=== PATIENT | female | born 1950 | race African-American/Black ===

== ENCOUNTER 2019-03-14 15:10 | Outpatient (CLI) | payer MEDICARE, MEDICAID ==
--- NOTE | 2019-03-14 15:28 | PRG ---
DATE OF SERVICE: 03/14/2019 HISTORY: Ms. Mari Patino is a very pleasant 68-year-old, who presents to the Wound Center for evaluation of an ulceration of the left anterior lower leg. Previously, the patient stated that she may have been bitten by an insect in October of this year. She stated that for the ulceration of her left lower leg, she had been cleansing the wound with Ivory soap and applying Neosporin followed by gauze and Coban prior to being seen in the Wound Center. The patient stated that she had received antibiotics for the ulceration of her left anterior lower leg. The patient was referred to the Wound Center by Dr. Esquivel on 02/28/2019. After being seen in the Wound Center, the ulceration was treated with the application of Xeroform, followed by an ABD and 3M Coban 2 Layer Compression System. PHYSICAL EXAMINATION: VITAL SIGNS: Temperature 98.2, pulse 77, respirations 20, blood pressure 131/65. EXTREMITIES: An ulceration of the left anterior lower leg is present which measures approximately 3.8 x 2.0 cm. Granulation tissue is visible within the wound margins. No purulent drainage is associated with the wound. No cellulitis of the left lower leg is appreciated. No maceration of the skin of the periwound is noted. A dorsalis pedis pulse is easily palpable on the left. No significant edema of the left foot or lower leg is present on exam today. ASSESSMENT AND PLAN: 1. Chronic venous hypertension with ulcer and inflammation. Dressing changes of Xeroform, followed by an ABD and 3M Coban 2 Layer Compression System will be continued on a weekly basis after cleansing and irrigation here in the Wound Center. I will see Ms. Patino again in 1 week. 2. Hypertension. 3. Gastroesophageal reflux disease. 4. Hypothyroidism. 5. Diabetes mellitus. Accu-Cheks will be obtained at the time of the patient's clinic visits. The patient has been reminded that for optimal wound healing, her blood glucoses should remain below 150. 6. Arthritis. Job ID: [id number]
[2019-03-14] MEDS ORDERED: Lidocaine 2% PF 100 mg/5 ml Syringe ONE (18:00)
[2019-03-14] MEDS ORDERED: Sodium Chloride 0.9% 15 ML NEB ONE (18:00)
== END 2019-03-14 15:11 | disposition home or self-care (01) ==
LOC: WCC 15:10
PROVIDERS: ATTEND Family Medicine
DX: I87.332 Chronic venous hypertension (idiopathic) with ulcer and inflammation of left lower extremity (principal); E11.622 Type 2 diabetes mellitus with other skin ulcer; L97.929 Non-pressure chronic ulcer of unspecified part of left lower leg with unspecified severity; I10 Essential (primary) hypertension; K21.9 Gastro-esophageal reflux disease without esophagitis; E03.9 Hypothyroidism, unspecified; M19.90 Unspecified osteoarthritis, unspecified site
CPT/HCPCS: A4218; J2001

== ENCOUNTER 2019-03-21 14:17 | Outpatient (CLI) | payer MEDICARE, MEDICAID ==
[2019-03-21] MEDS ORDERED: Sodium Chloride 0.9% 15 ML NEB ONE (18:00)
[2019-03-21] MEDS ORDERED: Lidocaine 2% PF 5 ML VIAL ONE (18:00)
--- NOTE | 2019-03-21 20:14 | PRG ---
DATE OF SERVICE: 03/21/2019 SUBJECTIVE: Ms. Mari Patino is a very pleasant 68-year-old, who presents to the wound center for evaluation of an ulceration of the left anterior lower leg. The patient previously stated that she may have been bitten by an insect in October of this year. She stated that for the ulceration of her left lower leg, she had been cleansing the wound with Ivory soap and applying the Neosporin followed by gauze and Coban prior to being seen in the wound center. The patient stated that she had received antibiotics for the ulceration of her left anterior lower leg. The patient was referred to the wound center by Dr. Esquivel on 02/28/2019. After being seen in the wound center, the ulceration was treated with the application of Xeroform, followed by an ABD and 3M Coban 2 Layer Compression System. OBJECTIVE: VITAL SIGNS: Temperature 97.8, pulse 83, respirations 18, blood pressure 163/89. EXTREMITIES: An ulceration of the left anterior lower leg is present, which measures approximately 3.9 x 1.8 cm. Granulation tissue is visible within the wound margins. No purulent drainage is associated with the wound. No cellulitis of the left lower leg is appreciated. No maceration of the skin of the periwound is noted. A dorsalis pedis pulses palpable on the left. No significant edema of the left foot or lower leg is present on exam today. ASSESSMENT AND PLAN: 1. Chronic venous hypertension with ulcer and inflammation. Xeroform gauze followed by an ABD, [place], and 3M Coban 2 Layer Compression System will be applied to the ulceration today. I will see Ms. Patino again in 1 week. 2. Hypertension. 3. Gastroesophageal reflux disease. 4. Hypothyroidism. 5. Diabetes mellitus. Accu-Cheks will be obtained at the time of the patient's clinic visit. The patient has been reminded that for optimal wound healing, her blood glucoses should remain below 150. 6. Arthritis. Job ID: [id number]
== END 2019-03-21 14:18 | disposition home or self-care (01) ==
LOC: WCC 14:17
PROVIDERS: ATTEND Family Medicine
DX: I87.332 Chronic venous hypertension (idiopathic) with ulcer and inflammation of left lower extremity (principal); E11.622 Type 2 diabetes mellitus with other skin ulcer; L97.929 Non-pressure chronic ulcer of unspecified part of left lower leg with unspecified severity; K21.9 Gastro-esophageal reflux disease without esophagitis; E03.9 Hypothyroidism, unspecified; M19.90 Unspecified osteoarthritis, unspecified site
CPT/HCPCS: 29581; A4218; J2001

== ENCOUNTER 2019-03-28 14:12 | Outpatient (CLI) | payer MEDICARE, MEDICAID ==
[~2019-03-28 14:12] MED LIST: Sodium Chloride 0.9% 15 ML NEB ONE
--- NOTE | 2019-03-28 15:53 | PRG ---
DATE OF SERVICE: 03/28/2019 HISTORY: Ms. Mari Patino is a very pleasant 68-year-old, who presents to the Wound Center for evaluation of an ulceration of the left anterior lower leg. The patient previously stated that she may have been bitten by an insect in October of this year. She stated that for the ulceration of her left lower leg, she had been cleansing the wound with Ivory soap and applying Neosporin followed by gauze and Coban prior to being seen in the Wound Center. The patient stated that she had received antibiotics for the ulceration of her left anterior lower leg. The patient was referred to the Wound Center by Dr. Esquivel on 02/28/2019. After being seen in the Wound Center, the ulceration was treated with the application of Xeroform, followed by an ABD and the 3M Coban 2 Layer Compression System. PHYSICAL EXAMINATION: VITAL SIGNS: Temperature 98.3, pulse 77, respirations 19, and blood pressure 137/67. EXTREMITIES: An ulceration of the left anterior lower leg is present, which measures approximately 2.6 x 1.8 cm. The dimensions of the wound at the time of the patient's last visit were approximately 3.8 x 2.0 cm. Granulation tissue is visible within the wound margins. No purulent drainage is associated with the wound. No cellulitis of the left lower leg is appreciated. No maceration of the skin of the periwound is noted. A dorsalis pedis pulse is palpable on the left. No significant edema of the left foot or lower leg is present on exam today. ASSESSMENT AND PLAN: 1. Chronic venous hypertension with ulcer and inflammation. Dressing changes of Xeroform followed by the 3M Coban 2 Layer Compression System are to be performed on a weekly basis after cleansing and irrigation here in the Wound Center. I will see Ms. Patino again in 1 week. The patient has been given a prescription for Synalar ointment 0.025% to be applied to the periwound of the ulceration at the time of dressing changes. The patient complains of itching of the periwound. 2. Hypertension. 3. Gastroesophageal reflux disease. 4. Hypothyroidism. 5. Diabetes mellitus. Accu-Cheks will be obtained at the time of the patient's clinic visits. The patient has been reminded that for optimal wound healing, her blood glucoses should remain below 150. 6. Arthritis. Job ID: [id number]
== END 2019-03-28 14:13 | disposition home or self-care (01) ==
LOC: WCC 14:12
PROVIDERS: ATTEND Family Medicine
DX: I87.332 Chronic venous hypertension (idiopathic) with ulcer and inflammation of left lower extremity (principal); K21.9 Gastro-esophageal reflux disease without esophagitis; E03.9 Hypothyroidism, unspecified; I10 Essential (primary) hypertension; E11.9 Type 2 diabetes mellitus without complications
CPT/HCPCS: A4218

== ENCOUNTER 2019-04-04 15:37 | Outpatient (CLI) | payer MEDICARE, MEDICAID ==
--- NOTE | 2019-04-04 17:10 | PRG ---
DATE OF SERVICE: 04/04/2019 HISTORY: Ms. Mari Patino is a very pleasant 68-year-old, who presents to the Wound Center for evaluation of an ulceration of the left anterior lower leg. Previously, the patient stated that she may have been bitten by an insect in October of this year. She stated that for the ulceration of her left lower leg, she had been cleansing the wound with Ivory soap and applying Neosporin followed by gauze and Coban prior to being seen in the Wound Center. The patient stated that she had received antibiotics for the ulceration of her left anterior lower leg. The patient was referred to the Wound Center by Dr. Esquivel on 02/28/2019. After being seen in the Wound Center, the ulceration was treated with the application of Xeroform, followed by an ABD and 3M Coban 2 Layer Compression System. PHYSICAL EXAMINATION: VITAL SIGNS: Temperature 98.1, pulse 101, respirations 22, and blood pressure 156/86. EXTREMITIES: An ulceration of the left anterior lower leg is present, which measures approximately 3.0 x 1.7 cm. Granulation tissue is visible within the wound margins. An island of skin is also visible within the wound margins. No purulent drainage is associated with the wound. No erythema of the skin surrounding the wound is present. No maceration of the skin of the periwound is noted. No significant edema of the left foot or lower leg is present on exam today. ASSESSMENT AND PLAN: 1. Chronic venous hypertension with ulcer and inflammation. Dressing changes of Xeroform followed by the 3M Coban 2 Layer Compression System are to be performed on a weekly basis after cleansing and irrigation here in the Wound Center. I will see Ms. Patino again in 1 week. Synalar ointment 0.025% will be continued to the periwound of the ulceration at the time of dressing changes. 2. Hypertension. 3. Gastroesophageal reflux disease. 4. Hypothyroidism. 5. Diabetes mellitus. Accu-Cheks will be obtained at the time of the patient's clinic visits. The patient has been reminded that for optimal wound healing, her blood glucoses should remain below 150. 6. Arthritis. Job ID: [id number]
== END 2019-04-04 15:38 | disposition home or self-care (01) ==
LOC: WCC 15:37
PROVIDERS: ATTEND Family Medicine
DX: I87.332 Chronic venous hypertension (idiopathic) with ulcer and inflammation of left lower extremity (principal); K21.9 Gastro-esophageal reflux disease without esophagitis; E03.9 Hypothyroidism, unspecified; E11.9 Type 2 diabetes mellitus without complications; M19.90 Unspecified osteoarthritis, unspecified site
CPT/HCPCS: 29581; A4218

== ENCOUNTER 2019-04-11 16:04 | Outpatient (CLI) | payer MEDICARE, MEDICAID ==
--- NOTE | 2019-04-11 17:18 | PRG ---
DATE OF SERVICE: 04/11/2019 HISTORY: Ms. Mari Patino is a very pleasant 68-year-old, who presents to the wound center for evaluation of an ulceration of the left anterior lower leg. The patient previously stated that she may have been bitten by an insect in October of this year. She stated that for the ulceration of her left lower leg, she had been cleansing the wound with Ivory soap and applying Neosporin followed by gauze and Coban prior to being seen in the wound center. The patient stated that she had received antibiotics for the ulceration of her left anterior lower leg. The patient was referred to the wound center by Dr. Esquivel on 02/28/2019. After being seen in the wound center, the ulceration was treated with the application of Xeroform, followed by an ABD and 3M Coban 2 Layer Compression System. PHYSICAL EXAMINATION: VITAL SIGNS: Temperature 99.6, pulse 81, respirations 20, blood pressure 119/66. EXTREMITIES: An ulceration of the left anterior lower leg is present which measures approximately 3.0 x 1.7 cm. The dimensions of the wound at the time of the patient's visit on 04/04/2019, were also approximately 3.0 x 1.7 cm. Granulation tissue is visible within the wound margins. An island of skin is again visible within the wound margins. No purulent drainage is associated with the wound. No erythema of the skin surrounding the wound is present. No maceration of the skin of the periwound is noted. No significant edema of the left foot or lower leg is present on exam today. ASSESSMENT AND PLAN: 1. Chronic venous hypertension with ulcer and inflammation. Dressing changes of Xeroform will be discontinued. Dressing changes of Medihoney followed by the 3M Coban 2 Layer Compression System will be initiated today. These dressing changes are to be performed on a weekly basis after cleansing and irrigation here in the wound center. The patient will return to the wound center for dressing change in 1 week. I will see Ms. Patino again in 2 weeks. Synalar ointment 0.025% will be continued to the periwound of the ulceration at the time of dressing changes. 2. Hypertension. 3. Gastroesophageal reflux disease. 4. Hypothyroidism. 5. Diabetes mellitus. Accu-Cheks will be obtained at the time of the patient's clinic visits. The patient has been reminded that for optimal wound healing, her blood glucoses should remain below 150. 6. Arthritis. Job ID: [id number]
== END 2019-04-11 16:05 | disposition home or self-care (01) ==
LOC: WCC 16:04
PROVIDERS: ATTEND Family Medicine
DX: I87.332 Chronic venous hypertension (idiopathic) with ulcer and inflammation of left lower extremity (principal); L97.829 Non-pressure chronic ulcer of other part of left lower leg with unspecified severity; E11.622 Type 2 diabetes mellitus with other skin ulcer; I10 Essential (primary) hypertension; E03.9 Hypothyroidism, unspecified; M19.90 Unspecified osteoarthritis, unspecified site
CPT/HCPCS: 29581; A4218

== ENCOUNTER 2019-04-17 13:15 | Outpatient (CLI) | payer MEDICARE, MEDICAID ==
[2019-04-17] MEDS ORDERED: Sodium Chloride 0.9% 15 ML NEB ONE (14:28)
== END 2019-04-17 13:16 | disposition home or self-care (01) ==
LOC: WCC 13:15
PROVIDERS: ATTEND Family Medicine
DX: I87.332 Chronic venous hypertension (idiopathic) with ulcer and inflammation of left lower extremity (principal); E11.622 Type 2 diabetes mellitus with other skin ulcer; L97.929 Non-pressure chronic ulcer of unspecified part of left lower leg with unspecified severity; E03.9 Hypothyroidism, unspecified; K21.9 Gastro-esophageal reflux disease without esophagitis; M19.90 Unspecified osteoarthritis, unspecified site
CPT/HCPCS: 29581; A4218

== ENCOUNTER 2019-04-25 15:00 | Outpatient (CLI) | payer MEDICARE, MEDICAID ==
[2019-04-25] MEDS ORDERED: Sodium Chloride 0.9% 15 ML NEB ONE (17:11)
[2019-04-25] MEDS ORDERED: Lidocaine 2% PF 100 mg/5 ml Syringe ONE (17:11)
--- NOTE | 2019-04-25 17:15 | PRG ---
DATE OF SERVICE: 04/25/2019 SUBJECTIVE: Ms. Mari Patino is a very pleasant 69-year-old, who presents to the Wound Center for evaluation of an ulceration of the left anterior lower leg. Previously, the patient stated that she may have been bitten by an insect in October of this year. She stated that for the ulceration of her left lower leg, she had been cleansing the wound with Ivory Soap and applying Neosporin followed by gauze and Coban prior to being seen in the Wound Center. The patient stated that she had received antibiotics for the ulceration of her left anterior lower leg. The patient was referred to the Wound Center by Dr. Esquivel on 02/28/2019. After being seen in the Wound Center, the ulceration was treated with the application of Xeroform, followed by an ABD, and 3M Coban 2 Layer Compression System. OBJECTIVE: VITAL SIGNS: Temperature 98.8, pulse 87, respirations 19, blood pressure 149/89. EXTREMITIES: An ulceration of the left anterior lower leg is present, which measures approximately 2.7 x 1.8 cm. The dimensions of the wound at the time of the patient's visit on 04/11/2019 were approximately 3.0 x 1.7 cm. Granulation tissue is visible within the wound margins and island of skin is again visible within the wound margins. No purulent drainage is associated with the wound. No erythema of the skin surrounding the wound is present. No maceration of the skin of the periwound is noted. No significant edema of the left foot or lower leg is present on exam today. ASSESSMENT AND PLAN: 1. Chronic venous hypertension with ulcer and inflammation. Dressing changes of Promogran, Hydrofera Blue, ABD, and the 3M Coban 2 Layer Compression System will be initiated today. These dressing changes are to be performed on a weekly basis after cleansing and irrigation here in the Wound Center. The patient is to return to the Wound Center in 1 week. Synalar ointment 0.025% will be continued to the periwound of the ulceration at the time of dressing changes. 2. Hypertension. 3. Gastroesophageal reflux disease. 4. Hypothyroidism. 5. Diabetes mellitus. Accu-Cheks will be obtained at the time of the patient's clinic visits. The patient has been reminded that for optimal wound healing, her blood glucoses should remain below 150. 6. Arthritis. Job ID: [id number]
== END 2019-04-25 15:01 | disposition home or self-care (01) ==
LOC: WCC 15:00
PROVIDERS: ATTEND Family Medicine
DX: I87.332 Chronic venous hypertension (idiopathic) with ulcer and inflammation of left lower extremity (principal); E11.622 Type 2 diabetes mellitus with other skin ulcer; L97.929 Non-pressure chronic ulcer of unspecified part of left lower leg with unspecified severity; M19.90 Unspecified osteoarthritis, unspecified site; E03.9 Hypothyroidism, unspecified; K21.9 Gastro-esophageal reflux disease without esophagitis; I10 Essential (primary) hypertension
CPT/HCPCS: A4218; J2001

== ENCOUNTER 2019-05-02 15:51 | Outpatient (CLI) | payer MEDICARE, MEDICAID ==
[~2019-05-02 15:51] MED LIST changes: +Lidocaine 2% PF 100 mg/5 ml Syringe ONE
--- NOTE | 2019-05-02 17:14 | PRG ---
DATE OF SERVICE: 05/02/2019 HISTORY: Ms. Mari Patino is a very pleasant 69-year-old, who presents to the Wound Center for evaluation of an ulceration of the left anterior lower leg. The patient previously stated that she may have been bitten by an insect in October of this year. She stated that for the ulceration of her left lower leg, she had been cleansing the wound with Ivory soap and applying Neosporin followed by gauze and Coban prior to being seen in the Wound Center. The patient stated that she had received antibiotics for the ulceration of her left anterior lower leg. The patient was referred to the Wound Center by Dr. Esquivel on 02/28/2019. After being seen in the Wound Center, the ulceration was treated with the application of Xeroform, followed by an AND, and 3M Coban 2 Layer Compression System. At the time of the patient's last visit, Promogran, Hydrofera Blue, ABD, and the 3M Coban 2 Layer Compression System were applied to the left anterior lower leg ulceration. PHYSICAL EXAMINATION: VITAL SIGNS: Temperature 98.3, pulse 87, respirations 18, and blood pressure 136/64. EXTREMITIES: An ulceration of the left anterior lower leg is present, which measures approximately 2.9 x 1.4 cm. The dimensions of the wound at the time of the patient's visit on 04/25/2019 were approximately 2.7 x 1.8 cm. Granulation tissue is visible within the wound margins. An island of skin is again visible within the wound margins. No purulent drainage is associated with the wound. No erythema of the skin surrounding the wound is present. No maceration of the skin of the periwound is noted. No significant edema of the left foot or lower leg is present on exam today. ASSESSMENT AND PLAN: 1. Chronic venous hypertension with ulcer and inflammation. Dressing changes of Promogran, Hydrofera Blue, ABD, and the 3M Coban 2 Layer Compression System will be continued on a weekly basis after cleansing and irrigation. The patient is to return to the Wound Center in 1 week. Synalar ointment 0.025% will be continued to the periwound of the ulceration at the time of dressing changes. 2. Hypertension. 3. Gastroesophageal reflux disease. 4. Hypothyroidism. 5. Diabetes mellitus. Accu-Cheks will be obtained at the time of the patient's clinic visits. The patient has been reminded that for optimal wound healing, her blood glucoses should remain below 150. 6. Arthritis. Job ID: [id number]
== END 2019-05-02 15:52 | disposition home or self-care (01) ==
LOC: WCC 15:51
PROVIDERS: ATTEND Family Medicine
DX: I87.332 Chronic venous hypertension (idiopathic) with ulcer and inflammation of left lower extremity (principal); E11.622 Type 2 diabetes mellitus with other skin ulcer; L97.929 Non-pressure chronic ulcer of unspecified part of left lower leg with unspecified severity; K21.9 Gastro-esophageal reflux disease without esophagitis; E03.9 Hypothyroidism, unspecified; M19.90 Unspecified osteoarthritis, unspecified site
CPT/HCPCS: A4218; J2001

== ENCOUNTER 2019-05-09 15:52 | Outpatient (CLI) | payer MEDICARE, MEDICAID ==
--- NOTE | 2019-05-09 16:50 | PRG ---
DATE OF SERVICE: 05/09/2019 HISTORY: Ms. Mari Patino is a very pleasant 69-year-old, who presents to the Wound Center for evaluation of an ulceration of the left anterior lower leg. The patient previously stated that she may have been bitten by an insect in October of this year. She stated that for the ulceration of her left lower leg, she had been cleansing the wound with Ivory soap and applying Neosporin followed by gauze and Coban prior to being seen in the Wound Center. The patient stated that she had received antibiotics for the ulceration of her left anterior lower leg. The patient was referred to the Wound Center by Dr. Esquivel on 02/28/2019. After being seen in the Wound Center, the ulceration was treated with the application of Xeroform followed by an ABD and 3M Coban 2 Layer Compression System. At the time of the patient's visit on 04/25/2019, dressing changes of Promogran and Hydrofera Blue in conjunction with the 3M Coban 2 Layer Compression System were initiated. PHYSICAL EXAMINATION: VITAL SIGNS: Temperature 97.9, pulse 83, respirations 18, blood pressure 134/74. EXTREMITIES: An ulceration of the left anterior lower leg is present, which measures approximately 2.8 x 0.9 cm. The dimensions of the wound at the time of the patient's visit on 05/02/2019 were approximately 2.9 x 1.4 cm. Granulation tissue is visible within the wound margins. No purulent drainage is associated with the wound. No erythema of the skin surrounding the wound is present. No maceration of the skin of the periwound is noted. No significant edema of the left foot or lower leg is present on exam today. ASSESSMENT AND PLAN: 1. Chronic venous hypertension with ulcer and inflammation. Promogran and Hydrofera Blue in conjunction with the 3M Coban 2 Layer Compression System will be applied to the ulceration today. The patient is to return to the Wound Center in 1 week. Synalar ointment 0.025% will be applied to the periwound of the ulceration today. 2. Hypertension. 3. Gastroesophageal reflux disease. 4. Hypothyroidism. 5. Diabetes mellitus. Accu-Cheks will be obtained at the time of the patient's clinic visit. The patient has been reminded that for optimal wound healing, her blood glucoses should remain below 150. 6. Arthritis. Job ID: [id number]
[2019-05-09] MEDS ORDERED: Sodium Chloride 0.9% 15 ML NEB ONE (17:06)
== END 2019-05-09 15:53 | disposition home or self-care (01) ==
LOC: WCC 15:52
PROVIDERS: ATTEND Family Medicine
DX: I87.332 Chronic venous hypertension (idiopathic) with ulcer and inflammation of left lower extremity (principal); E11.622 Type 2 diabetes mellitus with other skin ulcer; L97.929 Non-pressure chronic ulcer of unspecified part of left lower leg with unspecified severity; I10 Essential (primary) hypertension; K21.9 Gastro-esophageal reflux disease without esophagitis; E03.9 Hypothyroidism, unspecified; M19.90 Unspecified osteoarthritis, unspecified site
CPT/HCPCS: A4218

== ENCOUNTER 2019-05-10 14:07 | Outpatient (CLI) | payer MEDICARE, MEDICAID ==
--- NOTE | 2019-05-10 15:29 | BD ---
BONE DENSITOMETRY USING DEXA HISTORY: Postmenopausal screening for osteoporosis. LUMBAR SPINE BMD (g/cm2) T-SCORE Z-SCORE L1 0.928 -0.6 1.2 L2 0.885 -1.3 0.6 L3 1.037 -0.4 1.6 L4 0.962 -0.9 1.2 TOTAL 0.957 -0.8 1.2 NECK 0.795 -0.5 1.2 TOTAL 1.033 0.7 2.1 IMPRESSION: Normal bone mineral density. POS: MONSERRAT
--- NOTE | 2019-05-10 15:34 | MMO ---
Bilateral MAMMO Bilat Screen [facility]. CLINICAL HISTORY: Patient is 69 years old and is seen for screening. The patient has the following family history of breast cancer: maternal grandmother, at age 62. The patient has no personal history of cancer. VIEWS: The views performed were: bilateral craniocaudal; bilateral craniocaudal with tomosynthesis; bilateral mediolateral oblique; and bilateral mediolateral oblique with tomosynthesis. FILMS COMPARED: The present examination has been compared to prior imaging studies performed at 10/11/2007 and 10/29/2008. This study has been interpreted with the assistance of computer-aided detection. MAMMOGRAM FINDINGS: The breasts are almost entirely fat. There are benign appearing calcifications seen in both breasts. There are no suspicious masses, suspicious calcifications, or new areas of architectural distortion. IMPRESSION: THERE IS NO MAMMOGRAPHIC EVIDENCE OF MALIGNANCY. A ROUTINE FOLLOW-UP MAMMOGRAM IN 1 YEAR IS RECOMMENDED. THE RESULTS OF THIS EXAM WERE SENT TO THE PATIENT. ACR BI-RADS Category 2 - Benign finding MAMMOGRAPHY NOTE: 1. A negative mammogram report should not delay a biopsy if a dominant of clinically suspicious mass is present. 2. Approximately 10% to 15% of breast cancers are not detected by mammography. 3. Adenosis and dense breasts may obscure an underlying neoplasm. Reported by: JORDON ALMANZAR MD Electonically Signed: [id number]
== END 2019-05-10 14:08 | disposition home or self-care (01) ==
LOC: BICMAMMO 14:07
PROVIDERS: ATTEND Family Medicine
DX: Z12.31 Encounter for screening mammogram for malignant neoplasm of breast (principal); Z13.820 Encounter for screening for osteoporosis; Z80.3 Family history of malignant neoplasm of breast
CPT/HCPCS: 77063; 77067; 77080

== ENCOUNTER 2021-07-15 14:39 | Outpatient (CLI) | payer MEDICARE | END 2021-07-15 14:40 | disposition home or self-care (01) | LOC: RAD 14:39 | PROVIDERS: ATTEND Internal Medicine Gastroenterology | DX: Z53.9 Procedure and treatment not carried out, unspecified reason (principal); Q43.8 Other specified congenital malformations of intestine; K57.30 Diverticulosis of large intestine without perforation or abscess without bleeding | CPT/HCPCS: 74280 ==